=== PATIENT | male | born 1980 | race Two or more races ===

== ENCOUNTER → 2018-01-05 | Emergency (ER) | payer SELFPAY | END | disposition left against medical advice (07) | LOC: ER 19:54 | DX: R52 Pain, unspecified (principal); Z53.21 Procedure and treatment not carried out due to patient leaving prior to being seen by health care provider ==

== ENCOUNTER 2018-04-06 18:20 | Emergency (ER) | payer MEDICAID ==
[~2018-04-06] VITALS: Ht 170.2 cm; Wt 74.8 kg
[2018-04-06 20:49] LABS: Basophils # (auto) 0 uL; Basophils % (auto) 0.2 % (0.0-2.0); Eosinophils # (auto) 0.2 uL; Eosinophils % (auto) 2.1 % (0.0-7.0); Hematocrit 44.7 % (41.0-53.0); Hemoglobin 15.2 g/dL (13.5-17.5); Lymphocytes # (auto) 1.2 uL; Mean Corpuscular Hemoglobin 31.2 pg (28.0-32.0); Mean Corpuscular Hgb Conc. 33.9 g/dL (32.0-36.0); Mean Corpuscular Volume 91.8 fL (80.0-100.0); Monocytes # (auto) 0.8 uL; Neutrophils # (auto) 9.4 uL; Neutrophils % (auto) 80.7 % (37.0-80.0); Nucleated Red Blood Cells % 0.1 %; Platelet Count (auto) 315 10^3/uL (140-450); Red Blood Cells 4.87 10^6/uL (4.5-5.90); Red Cell Distribution Width 13.8 % (11.8-14.3); White Blood Cell 11.7 10^3/uL (4.4-10.8)
[2018-04-06 20:58] LABS: Albumin 3.1 g/dL (3.4-5.0); Calcium 8.8 mg/dL (8.5-10.1); Potassium 3.8 mmol/L (3.5-5.1)
[2018-04-06 21:00] LABS: BUN/Creatinine Ratio 10.1
[2018-04-06 21:03] LABS: Bilirubin, Total 0.5 mg/dL (0.2-1.0); Total Protein 7.9 g/dL (6.4-8.2)
[2018-04-07 00:26] VITALS: BP 128/80
[2018-04-07] MEDS ORDERED: cefTRIAXone W LIDOCAINE 500 MG IM IM ONE (01:30)
[2018-04-07] MEDS ORDERED: AZITHROMYCIN 250 MG TAB PO ONE ×2 (01:30→01:38)
[2018-04-07] MEDS ORDERED: cefTRIAXone SOD 500 MG VL ONE (01:31)
== END 2018-04-07 01:57 | disposition home or self-care (01) ==
LOC: ER 18:20
DX: N34.2 Other urethritis (principal); R51 Headache; F17.210 Nicotine dependence, cigarettes, uncomplicated
CPT/HCPCS: 36415; 80053; 85025; 87491; 87591; 96372; 99284; J0696